=== PATIENT | female | born 1980 | race Caucasian/White ===

== ENCOUNTER 2019-11-07 23:18 | Emergency (ER) | payer SELFPAY ==
--- NOTE | 2019-11-07 23:44 | ED Physician Documentation ---
History of Present Illness - Stated complaint Stated Complaint: CP/LEFT ARM PX - Chief complaint Chief Complaint: Cardiac - Additonal information Additional information: This is a 39-year-old female presents with chest pain. She states that she has had some pressure-like pain over her left chest on and off for the last week, but today it got worse and is been more unrelenting. She has not had any vomiting or diaphoresis. She denies any cardiac history. She denies diabetes, family history of early KS. She denies any IV drug use. She denies leg swelling, history of blood clots. Her breathing feels normal to her. She has not had a fever or cough. No hemoptysis. Review of Systems Constitutional: denies: Fever Cardiac: reports: Chest pain / pressure Respiratory: denies: Dyspnea GI: denies: Abdominal Pain : denies: Dysuria Skin: denies: Rash Neurologic: denies: Generalized weakness Immunocompromised: denies: Immunocompromised PD PAST MEDICAL HISTORY - Past Medical History Cardiovascular: None - Past Surgical History Cardiovascular: Other (None) - Allergies Allergies/Adverse Reactions: Allergies Allergy/AdvReac Type Severity Reaction Status Date / Time No Known Drug Allergies Allergy Verified 11/07/19 23:21 - Living Situation Living Arrangement: reports: At home - Social History Does the pt have substance abuse?: Yes Substance Use and Type: Marijuana, Other (Denies IVDU) PD ED PE NORMAL - Vitals Vital signs reviewed: Yes - General General: Alert and oriented X 3, No acute distress - HEENT HEENT: PERRL - Neck Neck: Supple, no meningeal sign - Cardiac Cardiac: RRR, No murmur - Respiratory Respiratory: No respiratory distress, Clear bilaterally - Abdomen Abdomen: Soft, Non tender, Non distended - Derm Derm: Warm and dry, No rash - Extremities Extremities: No deformity - Neuro Neuro: Alert and oriented X 3 - Psych Psych: Normal mood, Normal affect Results - Vitals Vitals: Oxygen O2 Source Room air - EKG (time done) 23:29 Other comments: Other comments (Rate 72, rhythm sinus, there is no ST segment elevation or depression, no T wave inversions. Intervals within normal limits) - Labs Labs: Laboratory Tests 11/08/19 11/08/19 11/08/19 00:25 00:25 00:25 WBC 5.1 RBC 3.60 L Hgb 11.8 L Hct 35.5 L MCV 98.6 MCH 32.8 H MCHC 33.2 RDW 12.2 Plt Count 234 MPV 9.5 Neut # (Auto) 2.4 Lymph # (Auto) 2.1 Spink # (Auto) 0.4 Eos # (Auto) 0.1 Baso # (Auto) 0.0 Absolute Nucleated RBC 0.00 Nucleated RBC % 0.0 Sodium 139 Potassium 3.9 Chloride 104 Carbon Dioxide 27 Anion Gap 8.0 BUN 15 Creatinine 0.6 Estimated GFR (MDRD) 111 Glucose 128 H Calcium 8.8 Total Bilirubin 0.4 AST 26 ALT 16 Alkaline Phosphatase 77 Troponin I High Sens < 2.3 L Total Protein 5.8 L Albumin 3.8 Globulin 2.0 L Albumin/Globulin Ratio 1.9 Lipase 30 - Rads (name of study) CXR Radiology: Other (No acute cardiopulmonary abnormalities) PD MEDICAL DECISION MAKING - ED course Complexity details: considered differential (ACS, dysrhythmia, anemia, pneumonia, pneumothorax, pleural effusion, pulmonary embolism) ED course: On arrival patient is well-appearing, her physical exam is unremarkable. During her stay she had intermittent episodes of mild hypotension with a systolic in the 90s which is patient's baseline. Her heart rate is normal and she is awake and alert with no signs of symptomatic hypotension. Her EKG shows no convincing signs of ischemia or dysrhythmia, and she did not have any dysrhythmia while on the monitor during her stay here. Her x-ray shows no acute cardiopulmonary abnormality. Her CBC shows a mild anemia which is unlikely to cause any symptoms, she has no leukocytosis. Her chemistry panel is unremarkable, and a high-sensitivity troponin is negative. Given that her symptoms have been ongoing for a week and a been unchanged over the last day, a single high- sensitivity troponin is sufficient. She has no signs of DVT, no history of PE, no hypoxia or tachycardia and she is PERC negative, no further work-up required. On repeat examination patient is feeling well, she has a benign abdominal exam, and her vital signs remain unchanged. I discussed return precautions and primary care follow-up and patient was discharged home in the care of her partner. Departure - Departure Disposition: Home, Self Care Clinical Impression: Chest pain Qualifiers: Chest pain type: unspecified Qualified Code(s): R07.9 - Chest pain, unspecified Condition: Good Instructions: ED Chest Pain Atypical Unkn Cause Follow-Up: Your,PCP [Other] - Within 1 week Comments: You were seen today for chest pain. Your chest x-ray and labs and EKG are reassuring. If you develop worsening symptoms such as increasing or changing pain, shortness of breath, coughing up blood, or leg swelling, please return to the emergency department. Otherwise please follow-up with your primary care provider. Discharge Date/Time: 11/08/19 01:46
[2019-11-08 00:30] LABS: BASOPHILS % (AUTO) 0.4 %; EOSINOPHILS # (AUTO) 0.1 10^3/uL (0.0-0.7); EOSINOPHILS % (AUTO) 2.4 %; HGB - HEMOGLOBIN 11.8 g/dL (12.0-16.0); LYMPHOCYTES # (AUTO) 2.1 10^3/uL (1.5-3.5); LYMPHOCYTES % (AUTO) 42.4 %; MEAN CORPUSCULAR HEMOGLOBIN 32.8 pg (27.0-31.0); MEAN CORPUSCULAR HGB CONC 33.2 g/dL (32.0-36.0); MEAN CORPUSCULAR VOLUME 98.6 fL (81.0-99.0); MEAN PLATELET VOLUME 9.5 fL (7.9-10.8); MONOCYTES # (AUTO) 0.4 10^3/uL (0.0-1.0); MONOCYTES % (AUTO) 7.5 %; NEUTROPHILS # (AUTO) 2.4 10^3/uL (1.5-6.6); NEUTROPHILS % (AUTO) 47.1 %; PLT - PLATELET COUNT 234 10^3/uL (130-450); RED CELL DISTRIBUTION WIDTH 12.2 % (12.0-15.0); WHITE BLOOD COUNT 5.1 x10^3/uL (4.8-10.8)
[2019-11-08 00:44] LABS: ALBUMIN 3.8 g/dL (3.2-5.5); ALBUMIN/GLOBULIN RATIO 1.9 (1.0-2.2); BILIRUBIN,TOTAL 0.4 mg/dL (0.2-1.0); CALCIUM 8.8 mg/dL (8.5-10.3); CREATININE 0.6 mg/dL (0.4-1.0); TOTAL PROTEIN 5.8 g/dL (6.7-8.2)
--- NOTE | 2019-11-08 01:28 | XRAY Report ---
Reason: Chest pain Procedure Date: 11/08/2019 Accession Number: [id number] / [id number] Procedure: XR - Chest 2 View X-Ray CPT Code: 13526 Final Report FULL RESULT: EXAM: CHEST RADIOGRAPHY EXAM DATE: 11/08/2019 12:44 AM. CLINICAL HISTORY: Chest pain. COMPARISON: None. TECHNIQUE: 2 views. FINDINGS: Lungs/Pleura: No dense consolidation. No large effusion or pneumothorax. No pulmonary edema. Mediastinum: Heart and mediastinal contours are unremarkable. Other: None. IMPRESSION: No acute radiographic pulmonary abnormalities. [facility]
[2019-11-08 01:43] VITALS: BP 98/50
== END 2019-11-08 01:46 | disposition home or self-care (01) ==
LOC: ED 23:18
DX: R07.9 Chest pain, unspecified (principal); I95.9 Hypotension, unspecified; D64.9 Anemia, unspecified
CPT/HCPCS: 36415; 71046; 80053; 83690; 84484; 85025; 93005; 99284